=== PATIENT | male | born 1990 | race Caucasian/White ===

== ENCOUNTER 2021-12-01 23:53 | Emergency (ER) | payer SELFPAY ==
[~2021-12-01] VITALS: Ht 175.3 cm; Wt 68.2 kg
[2021-12-02 00:03] VITALS: BP 126/87
== END 2021-12-02 01:56 | disposition left against medical advice (07) ==
LOC: EMS 23:54
DX: R10.9 Unspecified abdominal pain (principal); Z53.21 Procedure and treatment not carried out due to patient leaving prior to being seen by health care provider